=== PATIENT | female | born 2000 | race American Indian/Alaskan Native ===

== ENCOUNTER 2020-03-19 08:06 | Emergency (ER) | payer OTHER ==
[2020-03-19 08:15] VITALS: BP 103/64
[2020-03-19] MEDS ORDERED: IBUPROFEN 600 MG TAB PO ONE (10:17)
--- NOTE | 2020-03-19 10:22 | Emergency Department Report ---
ED ENT HPI - General Chief complaint: Dental/Oral Stated complaint: TOOTH PAIN Time Seen by Provider: 03/19/20 09:49 Source: patient Mode of arrival: Ambulatory Limitations: Language Barrier - History of Present Illness Initial comments: 25-year-old female presents emergency room with complaints of right upper dental pain that began last night. She states that it is causing her to have a headache due to her dental pain. She states that she took Tylenol with without relief last night. She denies any fever, vomiting. She is able to tolerate p.o. intake. She denies any past medical history or allergies to medications. - Related Data Previous Rx's Medication Instructions Recorded Last Taken Type Chlorhexidine Mouthwash [Peridex] 15 ml MM BID #1 bottle 03/19/20 Unknown Rx Ibuprofen [Motrin 600 MG tab] 600 mg PO Q8H PRN #14 tablet 03/19/20 Unknown Rx Penicillin Vk [Veetids TAB] 500 mg PO QID 7 Days #56 tablet 03/19/20 Unknown Rx Allergies Allergy/AdvReac Type Severity Reaction Status Date / Time No Known Allergies Allergy Verified 03/19/20 08:10 ED Dental HPI - General Chief complaint: Dental/Oral Stated complaint: TOOTH PAIN Time Seen by Provider: 03/19/20 09:49 Source: patient Mode of arrival: Ambulatory Limitations: Language Barrier - Related Data Previous Rx's Medication Instructions Recorded Last Taken Type Chlorhexidine Mouthwash [Peridex] 15 ml MM BID #1 bottle 03/19/20 Unknown Rx Ibuprofen [Motrin 600 MG tab] 600 mg PO Q8H PRN #14 tablet 03/19/20 Unknown Rx Penicillin Vk [Veetids TAB] 500 mg PO QID 7 Days #56 tablet 03/19/20 Unknown Rx Allergies Allergy/AdvReac Type Severity Reaction Status Date / Time No Known Allergies Allergy Verified 03/19/20 08:10 ED Review of Systems ROS: Stated complaint: TOOTH PAIN Other details as noted in HPI Comment: All other systems reviewed and negative ED Past Medical Hx - Past Medical History Previous Medical History?: No - Surgical History Past Surgical History?: No - Social History Smoking Status: Never Smoker Substance Use Type: None - Medications Home Medications: Home Medications Medication Instructions Recorded Confirmed Last Taken Type Chlorhexidine Mouthwash [Peridex] 15 ml MM BID #1 bottle 03/19/20 Unknown Rx Ibuprofen [Motrin 600 MG tab] 600 mg PO Q8H PRN #14 tablet 03/19/20 Unknown Rx Penicillin Vk [Veetids TAB] 500 mg PO QID 7 Days #56 tablet 03/19/20 Unknown Rx ED Physical Exam - General Limitations: Language Barrier General appearance: alert, in no apparent distress - Head Head exam: Present: atraumatic, normocephalic - Eye Eye exam: Present: normal appearance - ENT ENT exam: Present: normal orophraynx, mucous membranes moist, other (there is a cracked right upper back molar with dental decay present there is associated erythema and induration of the surrounding gumline most consistent with gingivitis, no fluctuance, no facial edema, uvula is midline, no uvular edema or deviation, no tongue elevation, no muffled voice) - Respiratory Respiratory exam: Present: normal lung sounds bilaterally. Absent: respiratory distress, wheezes, rales, rhonchi, stridor, chest wall tenderness, accessory muscle use, decreased breath sounds, prolonged expiratory - Cardiovascular Cardiovascular Exam: Present: regular rate, normal rhythm, normal heart sounds. Absent: systolic murmur, diastolic murmur, rubs, gallop - Neurological Exam Neurological exam: Present: alert, oriented X3 - Psychiatric Psychiatric exam: Present: normal affect, normal mood - Skin Skin exam: Present: warm, dry, intact ED Course Vital Signs 03/19/20 08:14 Temperature 98 F Pulse Rate 73 Respiratory 16 Rate Blood Pressure 103/64 [Left] O2 Sat by Pulse 100 Oximetry ED Medical Decision Making - Medical Decision Making 25-year-old female presents emergency room with complaints of right upper dental pain that began last night. She states that it is causing her to have a headache due to her dental pain. She states that she took Tylenol with without relief last night. She denies any fever, vomiting. She is able to tolerate p.o. intake. She denies any past medical history or allergies to medications. vitals are normal. on exam: there is a cracked right upper back molar with denta l decay present there is associated erythema and induration of the surrounding gumline most consistent with gingivitis, no fluctuance, no facial edema, uvula is midline, no uvular edema or deviation, no tongue elevation, no muffled voice. pt given ibuprofen while in the ED. examination appears consistent with infected dental caries and gingivitis, no obvious signs of dental abscess at this time. Patient given prescription for ibuprofen, penicillin VK, chlorhexidine mouthwash. advised pt Please use medication as prescribed. May alternate Tylenol and then ibuprofen every 6-8 hours as needed for pain. May gargle with warm salt water. Follow-up with a dentist. It is very important that you follow-up with a dentist. Return to emergency room for any new or worsening symptoms. Critical care attestation.: If time is entered above; I have spent that time in minutes in the direct care of this critically ill patient, excluding procedure time. ED Disposition Clinical Impression: Infected dental caries, Dental decay, Gingivitis, Cracked tooth Disposition: TO HOME OR SELFCARE Is pt being admited?: No Does the pt Need Aspirin: No Condition: Stable Instructions: Dental Caries (ED), Gingivitis (ED), Toothache (ED) Additional Instructions: Please use medication as prescribed. May alternate Tylenol and then ibuprofen every 6-8 hours as needed for pain. May gargle with warm salt water. Follow-up with a dentist. It is very important that you follow-up with a dentist. Return to emergency room for any new or worsening symptoms. Prescriptions: Ibuprofen [Motrin 600 MG tab] 600 mg PO Q8H PRN #14 tablet PRN Reason: Pain Chlorhexidine Mouthwash [Peridex] 15 ml MM BID #1 bottle Penicillin Vk [Veetids TAB] 500 mg PO QID 7 Days #56 tablet Referrals: [facility] [Outside] - 3-5 Days [facility] [Outside] - 3-5 Days Time of Disposition: 10:21 Print Language: LAO
== END 2020-03-19 10:27 | disposition home or self-care (01) ==
LOC: EDBD 08:06 → ED 08:06
DX: K05.10 Chronic gingivitis, plaque induced (principal); K03.81 Cracked tooth; K02.9 Dental caries, unspecified; Z79.1 Long term (current) use of non-steroidal anti-inflammatories (NSAID); Z79.2 Long term (current) use of antibiotics; Z79.899 Other long term (current) drug therapy
CPT/HCPCS: 99282

== ENCOUNTER 2020-11-18 18:35 | Emergency (ER) | payer OTHER ==
[2020-11-18 21:43] LABS: Blood Urea Nitrogen 6 mg/dL (7-17); Calcium 9.5 mg/dL (8.4-10.2); Hemolysis Index 5
--- NOTE | 2020-11-18 21:44 | Emergency Department Report ---
HPI - General Chief Complaint: Psych Time Seen by Provider: 11/18/20 21:37 - HPI HPI: Room 12 D The patient is a 20-year-old female present with chief complaint of suicidal ideation. Patient states she is felt suicidal for 1 day. The patient states she was prescribed medication for depression approximate 2 weeks ago but was not able to get it filled. Patient denies any attempt to actually harm her self and denies having an actual plan. ED Past Medical Hx - Past Medical History Previous Medical History?: Yes Hx Psychiatric Treatment: Yes (Depression, Anxiety) - Surgical History Past Surgical History?: No - Family History Family history: no significant - Social History Smoking Status: Current Some Day Smoker Substance Use Type: None (Denies illicit drug use) - Medications Home Medications: Home Medications Medication Instructions Recorded Confirmed Last Taken Type risperiDONE [RisperDAL] 1 mg PO DAILY 11/18/20 11/18/20 Unknown History ED Review of Systems ROS: Stated complaint: SI DEPRESSION Other details as noted in HPI Constitutional: no symptoms reported Eyes: denies: eye pain ENT: denies: throat pain Respiratory: no symptoms reported Cardiovascular: denies: chest pain Endocrine: no symptoms reported Gastrointestinal: denies: abdominal pain Genitourinary: denies: dysuria Musculoskeletal: denies: back pain Neurological: denies: headache Psychiatric: suicidal thoughts Physical Exam - Physical Exam Physical Exam: GENERAL: The patient is well-developed well-nourished female lying in chair not appearing to be in acute distress. [] HEENT: Normocephalic. Atraumatic. Extraocular motions are intact. Patient has moist mucous membranes. NECK: Supple. Trachea midline CHEST/LUNGS: Clear to auscultation. There is no respiratory distress noted. HEART/CARDIOVASCULAR: Regular. There is no tachycardia. There is no gallop rub or murmur. ABDOMEN: Abdomen is soft, nontender. Patient has normal bowel sounds. There is no abdominal distention. SKIN: There is no rash. There is no edema. There is no diaphoresis. NEURO: The patient is awake, alert, and oriented. The patient is cooperative. The patient has no focal neurologic deficits. The patient has normal speech MUSCULOSKELETAL: There is no evidence of acute injury. ED Medical Decision Making - Lab Data Result diagrams: 11/18/20 20:52 11/18/20 20:52 Laboratory Tests 04/11/18/20 11/18/20 20:52 20:52 20:52 WBC RBC Hgb Hct MCV MCH MCHC RDW Plt Count Lymph % (Auto) [place] % (Auto) Eos % (Auto) Baso % (Auto) Lymph # (Auto) [place] # (Auto) Eos # (Auto) Baso # (Auto) Seg Neutrophils % Seg Neutrophils # Sodium 135 L Potassium 4.2 Chloride 100.3 Carbon Dioxide 24 Anion Gap 15 BUN 6 L Creatinine 0.6 Estimated GFR > 60 BUN/Creatinine Ratio 10 Glucose 84 Calcium 9.5 HCG, Qual HCG, Quant Urine Color Urine Turbidity Urine pH Ur Specific [place] Urine Protein Urine Glucose (UA) Urine Ketones Urine Blood Urine Nitrite Urine Bilirubin Urine Urobilinogen Ur Leukocyte Esterase Urine WBC (Auto) Urine RBC (Auto) U Epithel Cells (Auto) Urine Mucus Salicylates < 0.3 L Urine Opiates Screen Urine Methadone Screen Acetaminophen 5.0 L Ur Barbiturates Screen Ur Phencyclidine Scrn Ur Amphetamines Screen U Benzodiazepines Scrn Urine Cocaine Screen U Marijuana (THC) Screen Drugs of Abuse Note Plasma/Serum Alcohol 11/18/20 11/18/20 11/18/20 20:52 20:52 20:52 WBC 7.8 RBC 4.74 Hgb 10.7 Hct 33.5 MCV 71 L MCH 23 L MCHC 32 RDW 14.7 Plt Count 194 Lymph % (Auto) 35.6 H [place] % (Auto) 7.6 H Eos % (Auto) 0.9 Baso % (Auto) 0.7 Lymph # (Auto) 2.8 [place] # (Auto) 0.6 Eos # (Auto) 0.1 Baso # (Auto) 0.1 Seg Neutrophils % 55.2 Seg Neutrophils # 4.3 Sodium Potassium Chloride Carbon Dioxide Anion Gap BUN Creatinine Estimated GFR BUN/Creatinine Ratio Glucose Calcium HCG, Qual Positive HCG, Quant Urine Color Urine Turbidity Urine pH Ur Specific [place] Urine Protein Urine Glucose (UA) Urine Ketones Urine Blood Urine Nitrite Urine Bilirubin Urine Urobilinogen Ur Leukocyte Esterase Urine WBC (Auto) Urine RBC (Auto) U Epithel Cells (Auto) Urine Mucus Salicylates Urine Opiates Screen Urine Methadone Screen Acetaminophen Ur Barbiturates Screen Ur Phencyclidine Scrn Ur Amphetamines Screen U Benzodiazepines Scrn Urine Cocaine Screen U Marijuana (THC) Screen Drugs of Abuse Note Plasma/Serum Alcohol < 0.01 11/18/20 11/18/20 11/18/20 22:37 22:37 Unknown WBC RBC Hgb Hct MCV MCH MCHC RDW Plt Count Lymph % (Auto) [place] % (Auto) Eos % (Auto) Baso % (Auto) Lymph # (Auto) [place] # (Auto) Eos # (Auto) Baso # (Auto) Seg Neutrophils % Seg Neutrophils # Sodium Potassium Chloride Carbon Dioxide Anion Gap BUN Creatinine Estimated GFR BUN/Creatinine Ratio Glucose Calcium HCG, Qual HCG, Quant 34723 H Urine Color Straw Urine Turbidity Clear Urine pH 7.0 Ur Specific [place] 1.008 Urine Protein <15 mg/dl Urine Glucose (UA) Neg Urine Ketones Neg Urine Blood Neg Urine Nitrite Neg Urine Bilirubin Neg Urine Urobilinogen < 2.0 Ur Leukocyte Esterase Sm Urine WBC (Auto) 1.0 Urine RBC (Auto) 1.0 U Epithel Cells (Auto) 3.0 Urine Mucus Few Salicylates Urine Opiates Screen Presumptive negative Urine Methadone Screen Presumptive negative Acetaminophen Ur Barbiturates Screen Presumptive negative Ur Phencyclidine Scrn Presumptive negative Ur Amphetamines Screen Presumptive negative U Benzodiazepines Scrn Presumptive negative Urine Cocaine Screen Presumptive negative U Marijuana (THC) Screen Presumptive positive Drugs of Abuse Note Disclamer Plasma/Serum Alcohol - Radiology Data Radiology results: report reviewed (Pelvic ultrasound), image reviewed (Pelvic ultrasound) [facility] [address] [place] [address] Ultrasound Report Signed Patient: MIKE MICHEL MR#: [id number] : 2000 Acct:[id number] Age/Sex: 20 / F ADM Date: 11/18/20 Loc: ED Attending Dr: Ordering Physician: RAUL KELLEY MD Date of Service: 11/18/20 Procedure(s): US OB <= 14 weeks fetus Accession Number(s): [id number] cc: RAUL KELLEY MD TRANSABDOMINAL OB PELVIC ULTRASOUND INDICATION / CLINICAL INFORMATION: . Medical clearance for psych admission. COMPARISON: None available. FINDINGS: The patient did not desire transvaginal imaging. There is a gestational saclike structure in the endometrial canal measuring 5 weeks 5 days. I do not identify a pole, yolk sac or cardiac activity. The right ovary measures 2.9 x 2.0 x 2.0 cm. The left ovary measures 6.1 x 4.9 x 5.5 cm and contains a 5.4 cm simple cyst. There is normal blood flow to both ovaries on Doppler exam. I see no evidence of an extraovarian mass or free fluid. IMPRESSION: 1. 5 week 5 day gestational saclike structure in the endometrium is likely an IUP of uncertain viability. A pseudosac is less likely. No evidence of extraovarian mass or free fluid. A follow-up study in 7-10 days may be helpful in documenting viability. 2. 5.4 cm simple left ovarian cyst. Signer Name: Bhupendra Morales MD Signed: 11/19/2020 1:52 AM Workstation Name: [id number] Transcribed By: RT Dictated By: Bhupendra Morales MD Electronically Authenticated By: Bhupendra Morales MD Signed Date/Time: 11/19/20151 DD/ 7 TD/TT: Print Cancel - Differential Diagnosis Suicidal ideation Critical care attestation.: If time is entered above; I have spent that time in minutes in the direct care of this critically ill patient, excluding procedure time. ED Disposition Clinical Impression: Suicidal ideation Disposition: [id number]/TX-65 PSY HOSP/PSY UNIT Is pt being admited?: No Does the pt Need Aspirin: No Condition: Stable Referrals: PRIMARY CAREMD [Primary Care Provider] - 3-5 Days Time of Disposition: 02:15 (Awaiting acceptance)
[2020-11-18 21:46] LABS: BUN/Creatinine Ratio 10
[2020-11-18 21:50] LABS: Basophils # (Auto) 0.1 K/mm3 (0.0-0.1); Basophils % (Auto) 0.7 % (0.0-1.8); Eosinophils # (Auto) 0.1 K/mm3 (0.0-0.4); Eosinophils % (Auto) 0.9 % (0.0-4.3); Hematocrit 33.5 % (30.3-42.9); Hemoglobin 10.7 gm/dl (10.1-14.3); Lymphocytes # (Auto) 2.8 K/mm3 (1.2-5.4); Lymphocytes % (Auto) 35.6 % (13.4-35.0); Mean Corpuscular HGB Conc 32 % (30-34); Mean Corpuscular Volume 71 fl (79-97); Monocytes # (Auto) 0.6 K/mm3 (0.0-0.8); Monocytes % (Auto) 7.6 % (0.0-7.3); Platelet Count 194 K/mm3 (140-440); Red Blood Count 4.74 M/mm3 (3.65-5.03); Red Cell Distribution Width 14.7 % (13.2-15.2)
[2020-11-18 22:54] LABS: Bilirubin,Urine NEG (Negative); Blood,Urine NEG (Negative); Color,Urine Straw (Yellow); Mucus,Urine FEW /HPF; Protein,Urine <15 mg/dL mg/dL (Negative); Urobilinogen,Urine < 2.0 mg/dL (<2.0)
[2020-11-18 23:01] LABS: Amphetamine Screen,Urine PRESUMPTIVE NEGATIVE; Benzodiazepines Screen,Urine PRESUMPTIVE NEGATIVE; Cannabinoid Screen,Urine PRESUMPTIVE POSITIVE; Cocaine Screen,Urine PRESUMPTIVE NEGATIVE; Methadone Screen,Urine PRESUMPTIVE NEGATIVE; Opiate Screen,Urine PRESUMPTIVE NEGATIVE
--- NOTE | 2020-11-19 01:57 | Ultrasound Report ---
TRANSABDOMINAL OB PELVIC ULTRASOUND INDICATION / CLINICAL INFORMATION: . Medical clearance for psych admission. COMPARISON: None available. FINDINGS: The patient did not desire transvaginal imaging. There is a gestational saclike structure in the endo metrial canal measuring 5 weeks 5 days. I do not identify a pole, yolk sac or cardiac activity. The right ovary measures 2.9 x 2.0 x 2.0 cm. The left ovary measures 6.1 x 4.9 x 5.5 cm and contains a 5.4 cm simple cyst. There is normal blood flow to both ovaries on Doppler exam. I see no evidence o f an extraovarian mass or free fluid. IMPRESSION: 1. 5 week 5 day gestational saclike structure in the endometrium is likely an IUP of uncertain viabil ity. A pseudosac is less likely. No evidence of extraovarian mass or free fluid. A follow-up study in 7-10 days may be helpful in documenting viability. 2. 5.4 cm simple left ovarian cyst. Signer Name: Bhupendra Morales MD Signed: 11/19/2020 1:52 AM Workstation Name: [id number]
[2020-11-19] MEDS ORDERED: diphenhydrAMINE 25 MG CAP PO ONE (03:17)
--- NOTE | 2020-11-19 10:27 | Consultation ---
History of Present Illness - Reason for Consult Consult date: 11/19/20 Reason for consult: psychosis - History of Present Psychiatric Illness Per ER Note: The patient is a 20-year-old female present with chief complaint of suicidal ideation. Patient states she is felt suicidal for 1 day. The patient states she was prescribed medication for depression approximate 2 weeks ago but was not able to get it filled. Patient denies any attempt to actually harm her self and denies having an actual plan. Per Nurse Note: 0430-Patient yelling out she hates this f'ing place and has taken her scrub top off off and has it wrapped around her neck simulating tightening it around her neck. When asked what was going on states she needs medication to help her sleep. Spoke with Sr. Montanez and Benadryl 50mg PO ordered and given. Will continue to monitor. I attempted to assess the patient today, she would not engage in a conversation with me. She has linen pulled over her head and says "huh" every time I call her name or touch her but she does not say anything else after that. She also pulls away when I touch her. The sitter also states the patient is not speaking to any one. The patient's urine was positive for THC. Risperidone is listed as a home med for the patient. It is documented in MH assessors note that the patient has a history of Bipolar. PAST PSYCHIATRIC HISTORY: Unable to assess PAST MEDICAL HISTORY: None reported Family Psychiatric History: None reported or documented SOCIAL HISTORY Unable to assess REVIEW OF SYSTEMS Unable to assess MENTAL STATUS EXAMINATION Unable to assess Assessment and Plan (1) Bipolar Disorder Treatment Plan 1013 Olanzapine 2.5mg daily, if Pharm is able to get Latuda will replace Olanzapine with it, as it has been studied to be a better fit for childbearing women Sitter: Defer to primary Medical: Per primary Disposition: Recommend acute psychiatric inpatient at this time Will follow. Thank you for this consult Case staffed with Dr. Jaime Medications and Allergies Allergies Allergy/AdvReac Type Severity Reaction Status Date / Time No Known Allergies Allergy Verified 03/19/20 08:10 Home Medications Medication Instructions Recorded Confirmed Last Taken Type risperiDONE [RisperDAL] 1 mg PO DAILY 11/18/20 11/18/20 Unknown History Mental Status Exam - Vital signs Last Vital Signs Temp 98.1 F 11/19/20 08:56 Pulse 89 11/19/20 08:56 Resp 20 04/25/21 08:56 BP 110/68 11/19/20 08:56 Pulse Ox 100 11/19/20 08:56 Results Result Diagrams: 11/18/20 20:52 11/18/20 20:52 Abnormal lab results 11/18/20 11/18/20 11/18/20 Range/Units 20:52 20:52 20:52 MCV (79-97) fl MCH (28-32) pg Lymph % (Auto) (13.4-35.0) % [place] % (Auto) (0.0-7.3) % Sodium 135 L (137-145) mmol/L BUN 6 L (7-17) mg/dL HCG, Quant (0-4) mIU/mL Salicylates < 0.3 L (2.8-20.0) mg/dL Acetaminophen 5.0 L (10.0-30.0) ug/mL 11/18/20 11/18/20 Range/Units 20:52 Unknown MCV 71 L (79-97) fl MCH 23 L (28-32) pg Lymph % (Auto) 35.6 H (13.4-35.0) % [place] % (Auto) 7.6 H (0.0-7.3) % Sodium (137-145) mmol/L BUN (7-17) mg/dL HCG, Quant 37076 H (0-4) mIU/mL Salicylates (2.8-20.0) mg/dL Acetaminophen (10.0-30.0) ug/mL All other labs normal.
--- NOTE | 2020-11-19 15:24 | Event Note ---
S: Patient refusing to speak. O: Resting comfortably, continues to pull sheet over her head. Vital signs are stable. Patient is protecting airway. Assessment: Suicidal ideation, depression, first trimester with IUP according to ultrasound, cocaine intoxication P: I discussed case with provider from mental health team. 1013 recommended. I have completed 1013 form. ED hold order in place. Inpatient stabilization recommended at this time
[2020-11-20] MEDS ORDERED: LATUDA 20 MG PO SCH (10:00)
--- NOTE | 2020-11-20 10:16 | Progress Note ---
Subjective - Reason for Consult Consult date: 11/20/20 Reason for consult: agitation - Chief Complaint Chief complaint: Per nurse note: The patient has been much better, calm, cooperative and denies SI/HI or A/V hallucinations The patient was seen today, she is cooperative and conversational today. The patient is pleasant and smiling. When informing the patient she wouldn't talk to me yesterday, she apologized. She says "I'm not in denial anymore about my mental health. I know I gotta take me meds." The patient denies SI/HI. She says "yesterday I was." She says "I had a prescription, but I lost it and don't know how to reach them to get it." The patient denies hallucinations of any kind. The patient also denies any feelings or fear of endangerment. REVIEW OF SYSTEMS Constitutional: Negative for weight loss ENT: Negative for stridor Respiratory: Negative for cough or hemoptysis All other systems reviewed and are negative MENTAL STATUS EXAMINATION General Appearance and Behavior: Age appropriate, good hygiene, not wearing appropriate clothes, good eye contact, calm and cooperative Cooperation: Participating, uncooperative at times Psychomotor Behavior: Psychomotor normal Mood: "better" Affect and affective range: Congruent with stated mood Thought Process: goal oriented Speech: Normal tone and pace Thought Content Suicidal Ideation: Denies Homicidal Ideation: Denies Hallucinations: Denies Delusions: None elicited Impulse Control: Limited Insight and Judgment: limited insight and judgment Memory: Limited Attention: Divided attention impaired Orientation: A/o x 3 Assessment and Plan (1) Bipolar Disorder Treatment Plan d/c 1013 Latuda 20mg po daily Sitter: Defer to primary Medical: Per primary Disposition: Do not Recommend acute psychiatric inpatient at this time. The patient understands that if SI/HI or/and fear of endangerment returns she should seek immediate assistance including 911/ER and crisis hotline. The supervisor paint department to further discuss safety plan, and give the patient resources and CBT The patient to follow up with psych or primary in 7 to 14 days upon discharge Will sign off. Thank you for this consult Case staffed with Dr. Jaime Mental Status Exam - Vital signs Last Vital Signs Temp 98.4 F 11/20/20 02:30 Pulse 75 11/20/20 02:30 Resp 16 11/20/20 02:30 BP 100/57 04/26/21 02:30 Pulse Ox 100 11/20/20 02:30
[2020-11-20 10:18] VITALS: BP 116/60
--- NOTE | 2020-11-20 10:40 | Emergency Department Report ---
Blank Doc - Documentation Documentation: No new events No new complaints Awaiting placement
== END 2020-11-20 15:00 ==
LOC: ED 18:35
DX: O26.891 Other specified pregnancy related conditions, first trimester (principal); R45.851 Suicidal ideations; Z20.822 Contact with and (suspected) exposure to COVID-19; F32.9 Major depressive disorder, single episode, unspecified; F41.9 Anxiety disorder, unspecified; F17.200 Nicotine dependence, unspecified, uncomplicated; Z3A.01 Less than 8 weeks gestation of pregnancy; Z79.899 Other long term (current) drug therapy
CPT/HCPCS: 36415; 76801; 80048; 80307; 81001; 84702; 84703; 85025; 99285; U0003; 80320; G0480

== ENCOUNTER 2021-01-26 22:08 | Emergency (ER) | payer OTHER ==
[2021-01-26 22:37] LABS: Basophils # (Auto) 0.1 K/mm3 (0.0-0.1); Basophils % (Auto) 0.9 % (0.0-1.8); Eosinophils # (Auto) 0.1 K/mm3 (0.0-0.4); Eosinophils % (Auto) 1.3 % (0.0-4.3); Hematocrit 31.2 % (30.3-42.9); Hemoglobin 10.1 gm/dl (10.1-14.3); Lymphocytes # (Auto) 2.2 K/mm3 (1.2-5.4); Lymphocytes % (Auto) 30.8 % (13.4-35.0); Mean Corpuscular HGB Conc 32 % (30-34); Mean Corpuscular Volume 70 fl (79-97); Monocytes # (Auto) 0.5 K/mm3 (0.0-0.8); Monocytes % (Auto) 6.6 % (0.0-7.3); Platelet Count 183 K/mm3 (140-440); Red Blood Count 4.45 M/mm3 (3.65-5.03); Red Cell Distribution Width 15.1 % (13.2-15.2)
[2021-01-26 22:55] LABS: Blood Urea Nitrogen 9 mg/dL (7-17); Hemolysis Index 1
[2021-01-26 22:56] LABS: BUN/Creatinine Ratio 18
--- NOTE | 2021-01-26 22:57 | Emergency Department Report ---
HPI - General Chief Complaint: Psych Time Seen by Provider: 01/26/21 22:25 - HPI HPI: Room 15 The patient is a 20-year-old female present with a chief complaint of's suicidal ideation and auditory hallucinations. The patient states for the past 3 days she has been having auditory hallucinations. Patient states she hears voices but cannot recall at this moment what they are saying. Patient also admits to suicidal ideation for the past 3 days. Patient denies any attempts at harming herself and denies having a plan. The patient states "I guess I was hearing things and my neighbor was not making it better." When asked what this means the patient states she felt as though her neighbor was "messing" with her and "playing along with the voices." ED Past Medical Hx - Past Medical History Previous Medical History?: Yes Hx Psychiatric Treatment: Yes (Depression, Anxiety) - Surgical History Past Surgical History?: No - Family History Family history: no significant - Social History Smoking Status: Current Every Day Smoker (08/10 pack/day) Substance Use Type: Marijuana - Medications Home Medications: Home Medications Medication Instructions Recorded Confirmed Last Taken Type risperiDONE [RisperDAL] 1 mg PO DAILY 11/18/20 11/18/20 Unknown History Lurasidone HCl [Latuda] 20 mg PO QDAY #30 tablet 11/20/20 Unknown Rx ED Review of Systems ROS: Stated complaint: MH EVAL Other details as noted in HPI Constitutional: no symptoms reported Eyes: denies: eye pain ENT: denies: throat pain Respiratory: no symptoms reported Cardiovascular: denies: chest pain Endocrine: no symptoms reported Gastrointestinal: denies: abdominal pain Genitourinary: denies: dysuria Musculoskeletal: denies: back pain Neurological: denies: headache Psychiatric: auditory hallucinations, suicidal thoughts Physical Exam - Physical Exam Vital Signs: Vital Signs 01/26/21 01/26/21 22:17 22:22 Temperature 98.6 F Pulse Rate 87 Respiratory 16 16 Rate Blood Pressure 104/55 [Left] O2 Sat by Pulse 99 Oximetry Physical Exam: GENERAL: The patient is well-developed well-nourished female lying on chair not appearing to be in acute distress. [] HEENT: Normocephalic. Atraumatic. Extraocular motions are intact. Patient has moist mucous membranes. NECK: Supple. Trachea midline CHEST/LUNGS: Clear to auscultation. There is no respiratory distress noted. HEART/CARDIOVASCULAR: Regular. There is no tachycardia. There is no gallop rub or murmur. ABDOMEN: Abdomen is soft, nontender. Patient has normal bowel sounds. There is no abdominal distention. SKIN: There is no rash. There is no edema. There is no diaphoresis. NEURO: The patient is awake, alert, and oriented. The patient is cooperative. The patient has no focal neurologic deficits. The patient has normal speech MUSCULOSKELETAL: There is no evidence of acute injury. ED Course Vital Signs 01/26/21 01/26/21 22:17 22:22 Temperature 98.6 F Pulse Rate 87 Respiratory 16 16 Rate Blood Pressure 104/55 [Left] O2 Sat by Pulse 99 Oximetry ED Medical Decision Making - Lab Data Result diagrams: 01/26/21 22:24 - Differential Diagnosis Suicidal ideation, auditory hallucinations Critical care attestation.: If time is entered above; I have spent that time in minutes in the direct care of this critically ill patient, excluding procedure time. ED Disposition Clinical Impression: Suicidal ideations, Auditory hallucinations Disposition: [id number]/TX-[id number] PSY HOSP/PSY UNIT Is pt being admited?: No Does the pt Need Aspirin: No Condition: Stable Referrals: PRIMARY CARE, [Primary Care Provider] - 3-5 Days Time of Disposition: 22:55 (Awaiting acceptance)
[2021-01-27] MEDS ORDERED: ZIPRASIDONE MESYLATE 20 MG VIAL IM ONE ×2 (00:42→01:10)
[2021-01-27] MEDS ORDERED: WATER FOR INJ Sterile (PF) 10 ML ONE (00:42)
[2021-01-27 08:49] VITALS: BP 98/63
--- NOTE | 2021-01-27 09:31 | Consultation ---
History of Present Illness - Reason for Consult Consult date: 01/27/21 Reason for consult: SI - History of Present Psychiatric Illness Per ER Note: The patient is a 20-year-old female present with a chief complaint of's suicidal ideation and auditory hallucinations. The patient states for the past 3 days she has been having auditory hallucinations. Patient states she hears voices but cannot recall at this moment what they are saying. Patient also admits to suicidal ideation for the past 3 days. Patient denies any attempts at harming herself and denies having a plan. The patient states "I guess I was hearing things and my neighbor was not making it better." When asked what this means the patient states she felt as though her neighbor was "messing" with her and "playing along with the voices." Celia Campoverde is a 20y/o female patient who presented to the ER with suicidal thoughts and auditory hallucinations. During my evaluation of the patient she is asleep. She is a/o x 3. She tells me she came to the hospital because "I had a breakdown." She then says "I feel good now, though. I'm just trying to explain myself." When asking the patient what that meant by a nervous breakdown, she replied " because I haven't been on my meds. They were too much and I couldn't afford them." She says "I felt gogo suicidal when I came in." The patient denies suicidal thoughts at present, stating "no, not currently but when I came in." She also denies hallucinations of any kind. She replies "I guess I slept it off." The patient denies any illicit drug use outside of "weed." She also denies any alcohol use. PAST PSYCHIATRIC HISTORY: Diagnoses: Bipolar Suicide attempts or Self-harm behavior: Denied Prior psychiatric hospitalizations: Yes Substance Abuse history: "weed" Previous psychiatric medications tried: olanzapine Outpatient treatment: not currently PAST MEDICAL HISTORY: None reported Family Psychiatric History: None reported or documented SOCIAL HISTORY Marital Status: Single Living Arrangements: alone Employment Status: unemployed Access to guns/weapons: Denies Education: History of Abuse: Denies Legal History: Denies REVIEW OF SYSTEMS Constitutional: Negative for weight loss ENT: Negative for stridor Respiratory: Negative for cough or hemoptysis All other systems reviewed and are negative MENTAL STATUS EXAMINATION General Appearance and Behavior: Age appropriate, good hygiene, wearing appropriate clothes, calm and cooperative polite with questioning. Cooperation: cooperative Psychomotor Behavior: Psychomotor normal Mood: "good" Affect and affective range: congruent with stated mood Thought Process: Goal directed Thought Content: Within reality Speech: Normal tone and pace Suicidal Ideation: Denies Homicidal Ideation: Denies hallucination: Denies Delusions: None elicited Impulse Control: Limited Insight and Judgment: Limited Memory: Intact Attention: Undistracted Orientation: Alert and oriented Diagnoses: Bipolar Disorder RECOMMENDATIONS Zoloft 25mg po daily Olanzapine 2.5mg po daily Patient should be compliant with medications and not to use drugs and not to drink alcohol. PSYCHOTHERAPY: Supportive psychotherapy provided MEDICAL: Per primary team DELIRIUM PRECAUTIONS: Please re-orient patient frequently, keep lights on during the day, and minimize benzodiazepines and opiates as these medications could worsen patient's confusion. FIELD SEISMOLOGIST: Per medical team DISPOSITION: Do not recommend acute inpatient psychiatric hospitalization at this time. The patient understands that if SI/HI or any fear of endangerment are to arise she is to seek immediate assistance The secure software assessor to further discuss safety plan The secure software assessor to give the patient resources for CBT, and med management and assistance The patient to follow up with outpatient psych in 7 to 14 days upon discharge FOLLOW-UP: Will sign off Thank you for the consult. Please contact with any questions and/or concerns. Case staffed with Dr. Jaime Medications and Allergies Allergies Allergy/AdvReac Type Severity Reaction Status Date / Time No Known Allergies Allergy Verified 03/19/20 08:10 Home Medications Medication Instructions Recorded Confirmed Last Taken Type risperiDONE [RisperDAL] 1 mg PO DAILY 11/18/20 11/18/20 Unknown History Lurasidone HCl [Latuda] 20 mg PO QDAY #30 tablet 11/20/20 Unknown Rx OLANzapine [ZyPREXA] 2.5 mg PO QDAY #30 tablet 01/27/21 Unknown Rx Sertraline [Zoloft] 25 mg PO QDAY #30 tab 01/27/21 Unknown Rx Mental Status Exam - Vital signs Last Vital Signs Temp 97.8 F 01/27/21 08:46 Pulse 93 H 01/27/21 08:46 Resp 16 01/27/21 08:46 BP 98/63 01/27/21 08:46 Pulse Ox 99 07/03/21 08:46 Results Result Diagrams: 01/26/21 22:24 01/26/21 22:24 Abnormal lab results 01/26/21 01/26/21 01/26/21 Range/Units 22:24 22:24 22:24 MCV (79-97) fl MCH (28-32) pg Sodium 134 L (137-145) mmol/L Creatinine 0.5 L (0.6-1.2) mg/dL Salicylates < 0.3 L (2.8-20.0) mg/dL Acetaminophen 5.0 L (10.0-30.0) ug/mL 01/26/21 Range/Units 22:24 MCV 70 L (79-97) fl MCH 23 L (28-32) pg Sodium (137-145) mmol/L Creatinine (0.6-1.2) mg/dL Salicylates (2.8-20.0) mg/dL Acetaminophen (10.0-30.0) ug/mL All other labs normal.
--- NOTE | 2021-01-27 12:02 | Event Note ---
Date: 01/27/21 20-year-old female who presented initially with SI/auditory hallucinations. She was seen by my colleague and medically cleared for psychiatric evaluation. She was seen by the mental health/psychiatry team this morning who had her clarify her symptoms and she states that she no longer has them. They recommended no acute inpatient psychiatric treatment but did start new medications including Zoloft and olanzapine. They recommended follow-up in 7 to 14 days as an outpatient. However, while speaking to the patient in preparation for discha rge, she mentioned that she might be . She has no other psychiatric or medical/physical complaints. Therefore we will obtain urinalysis and test. We will follow up the results of these tests and then discharge the patient appropriately.
[2021-01-27 13:15] LABS: HCG Qualitative,Urine Positive (Negative)
[2021-01-27 13:16] LABS: Bilirubin,Urine NEG (Negative); Blood,Urine NEG (Negative); Color,Urine Yellow (Yellow); Mucus,Urine 1+ /HPF; Urobilinogen,Urine < 2.0 mg/dL (<2.0)
[2021-01-27 13:23] LABS: Amphetamine Screen,Urine Negative; Benzodiazepines Screen,Urine Negative; Cocaine Screen,Urine Negative; Methadone Screen,Urine Negative; Opiate Screen,Urine Negative
[2021-01-27 13:38] LABS: Cannabinoid Screen,Urine Positive
--- NOTE | 2021-01-27 14:52 | Event Note ---
Date: 01/27/21 Urine test came back positive. Urinalysis shows no evidence of infection no bacteriuria. I spoke with the patient regarding her positive test and she indicated that she already knew she was . She is a G3, P1 female and says she is approximately 16 weeks based on an ultrasound performed in November at [place]. She reports she has had no abdominal pain, vaginal bleeding, vaginal discharge, dysuria, hematuria, or any other complaints. Given that we now know she is we will contact the mental health oil well drilling manager/ps ychiatry team to reassess the patient and make further recommendations regarding both disposition and medications chosen.
--- NOTE | 2021-01-27 15:14 | Event Note ---
Date: 01/27/21 Case discussed with the psychiatry JANITORIAL MAINTENANCE WORKER Jessie. She states that the patient was on these medications during her last and that the benefits of controlling the patient's psychiatric condition outweigh the risks. Therefore she will be discharged with the prescriptions as written and outpatient follow- up. She was encouraged to follow-up with her FILLER PICKER and start taking vitamins. She was educated about the importance of taking her medications and refrain from use of illicit substances, alcohol, and smoking. Patient expressed understanding and agreement with this plan of care.
== END 2021-01-27 16:17 | disposition home or self-care (01) ==
LOC: ED 22:08
DX: R45.851 Suicidal ideations (principal); Z20.822 Contact with and (suspected) exposure to COVID-19; R44.0 Auditory hallucinations; F32.9 Major depressive disorder, single episode, unspecified; F41.9 Anxiety disorder, unspecified; F17.200 Nicotine dependence, unspecified, uncomplicated; F12.10 Cannabis abuse, uncomplicated; Z79.899 Other long term (current) drug therapy
CPT/HCPCS: 36415; 80048; 80307; 81001; 81025; 85025; 96372; 99284; J3486; U0003; 80320; G0480